=== PATIENT | male | born 1980 | race African-American/Black ===

== ENCOUNTER 2020-11-20 19:23 | Emergency (ER) | payer BC ==
[~2020-11-20] VITALS: Ht 177.8 cm; Wt 69.0 kg
[2020-11-20 19:43] VITALS: BP 144/76
[2020-11-20] MEDS ORDERED: ONDANSETRON 4MG ODT PO ONE (21:30)
[2020-11-20] MEDS ORDERED: HYDROCODONE/ACETAMINOPHEN 5/325MG TABLET PO ONE (21:30)
[2020-11-20] MEDS ORDERED: HYDR-4001 MT (22:43)
== END 2020-11-20 23:04 | disposition home or self-care (01) ==
LOC: ER 19:23
DX: S82.141A Displaced bicondylar fracture of right tibia, initial encounter for closed fracture (principal); M54.89 Other dorsalgia; V43.72XA Person on outside of car injured in collision with other type car in traffic accident, initial encounter; Y93.89 Activity, other specified; Y92.488 Other paved roadways as the place of occurrence of the external cause
CPT/HCPCS: 72070; 73562; 73590; 99284; L1830; Q0162; Z7610